=== PATIENT | male | born 1955 | race Caucasian/White ===

== ENCOUNTER 2017-08-30 20:15 | Inpatient (IN) | payer MEDICAID ==
[2017-08-30 22:16] LABS: ADD MAN DIFF? NO
[2017-08-30 22:17] LABS: WHITE BLOOD COUNT 15.7 10^3/ul (4.8-10.8)
[2017-08-30 22:17] LABS: BASOPHIL # 0.1 10^3/ul (0.0-0.1); BASOPHILS % 0.6 % (0.0-2.0); EOSINOPHILS % 0.2 % (0.0-7.0); HEMATOCRIT 45.7 % (42.0-52.0); LYMPHOCYTES # 1.5 10^3/ul (0.8-2.9); LYMPHOCYTES % 9.7 % (15.0-51.0); MEAN CORPUSCULAR HEMOGLOBIN 30.3 pg (29.0-33.0); MEAN CORPUSCULAR VOLUME 86.6 fl (82.0-101.0); MEAN PLATELET VOLUME 9.6 fl (7.4-10.4); MONOCYTE # 0.9 10^3/ul (0.3-0.9); MONOCYTES % 5.6 % (0.0-11.0); PLATELET COUNT 260 10^3/UL (140-415); POSITIVE DIFF @See below; RED BLOOD COUNT 5.28 10^6/ul (4.70-6.10); RED CELL DISTRIBUTION WIDTH 12.7 % (11.5-14.5)
[2017-08-30 22:20] LABS: URINE BLOOD (Dip) POC Negative (NEGATIVE); URINE GLUCOSE (Dip) POC Negative (NEGATIVE); URINE KETONES (Dip) POC 2+ (NEGATIVE); URINE LEUKOCYTE EST (Dip) POC Negative (NEGATIVE); URINE NITRITE (Dip) POC Negative (NEGATIVE); URINE TOTAL PROTEIN POC 1+ (NEGATIVE)
[2017-08-30 22:20] LABS: URINE PH (Dip) POC 8.5 (5.0-8.5)
[2017-08-30 22:30] LABS: INR 0.93; PROTIME 12.5 Sec (11.9-14.9)
[2017-08-30 22:31] LABS: PARTIAL THROMBOPLASTIN TIME 26.6 Sec (25.0-35.0)
[2017-08-30 22:32] LABS: ALANINE AMINOTRANSFERASE 59 IU/L (13-69); ALBUMIN 5.1 g/dl (3.3-4.9); ALBUMIN/GLOBULIN RATIO 1.45; ALKALINE PHOSPHATASE 88 IU/L (42-121); ANION GAP 23 (8-16); ASPARTATE AMINO TRANSFERASE 49 IU/L (15-46); BILIRUBIN,INDIRECT 0.4 mg/dl (0-1.1); BILIRUBIN,TOTAL 0.4 mg/dl (0.2-1.3); BLOOD UREA NITROGEN 12 mg/dl (7-20); CALCIUM 10.3 mg/dl (8.4-10.2); CARBON DIOXIDE 25 mmol/L (21-31); CHLORIDE 96 mmol/L (97-110); GLUCOSE 151 mg/dl (70-220); LIPASE 86 U/L (23-300); POTASSIUM 3.6 mmol/L (3.5-5.1); SODIUM 140 mmol/L (135-144); TOTAL PROTEIN 8.6 g/dl (6.1-8.1)
[2017-08-30] MEDS: ONDANSETRON 4 MG INJ IV (22:42)
[2017-08-30] MEDS: HYDROmorphONE 1 MG/ML SYG IV (22:42)
[2017-08-30 23:01] LABS: ADD UMIC YES; UR ASCORBIC ACID NEGATIVE (NEGATIVE); UR BACTERIA FEW /HPF (NONE SEEN); UR BILIRUBIN (Dip) NEGATIVE (NEGATIVE); UR BLOOD (Dip) NEGATIVE (NEGATIVE); UR CLARITY CLOUDY (CLEAR); UR COLOR YELLOW (YELLOW); UR GLUCOSE (Dip) NEGATIVE (NEGATIVE); UR KETONES (Dip) 1+ mg/dL (NEGATIVE); UR LEUKOCYTE ESTERASE (Dip) NEGATIVE Leu/ul (NEGATIVE); UR NITRITE (Dip) NEGATIVE (NEGATIVE); UR RBC 2 /HPF (0-5); UR SPECIFIC GRAVITY (Dip) 1.019 (1.003-1.030); UR SQUAMOUS EPITHELIAL CELL FEW /HPF (FEW); UR TOTAL PROTEIN (Dip) 1+ mg/dl (NEGATIVE); UR UROBILINOGEN (Dip) 2+ mg/dL (NEGATIVE); UR WBC 2 /HPF (0-5)
[2017-08-31] MEDS: PIPER-TAZO 3.375 GM IV (PMX) 100 ML IVPB (00:33)
[2017-08-31] MEDS: SOD CHLORIDE 0.9% 1,000 ML IV (00:34)
[2017-08-31] MEDS: HYDROmorphONE 1 MG/ML SYG IV (01:21)
[2017-08-31] MEDS ORDERED: morphine 2 MG INJ IV (03:00)
[2017-08-31] MEDS ORDERED: ONDANSETRON 4 MG INJ IV (03:00)
[2017-08-31] MEDS: DEXTROSE 5%-0.45% NACL 1,000 ML IV ×3 (03:02→23:00)
[2017-08-31] MEDS: morphine 2 MG INJ IV ×5 (04:35→21:50)
[2017-08-31 05:20] LABS: ADD MAN DIFF? NO
[2017-08-31 05:36] LABS: BASOPHILS % 0.5 % (0.0-2.0); EOSINOPHILS # 0.1 10^3/ul (0.0-0.5); EOSINOPHILS % 0.8 % (0.0-7.0); HEMATOCRIT 40.2 % (42.0-52.0); HEMOGLOBIN 13.8 g/dl (14.0-18.0); LYMPHOCYTES # 1.7 10^3/ul (0.8-2.9); LYMPHOCYTES % 21.3 % (15.0-51.0); MEAN CORPUSCULAR HEMOGLOBIN 30.1 pg (29.0-33.0); MEAN CORPUSCULAR HGB CONC 34.3 g/dl (32.0-37.0); MEAN CORPUSCULAR VOLUME 87.6 fl (82.0-101.0); MONOCYTE # 0.9 10^3/ul (0.3-0.9); MONOCYTES % 11.1 % (0.0-11.0); NEUTROPHIL # 5.3 10^3/ul (1.6-7.5); NEUTROPHILS % 65.7 % (39.0-77.0); PLATELET COUNT 225 10^3/UL (140-415); RED BLOOD COUNT 4.59 10^6/ul (4.70-6.10); RED CELL DISTRIBUTION WIDTH 12.6 % (11.5-14.5)
[2017-08-31 05:57] LABS: ALANINE AMINOTRANSFERASE 49 IU/L (13-69); ALBUMIN 3.9 g/dl (3.3-4.9); ALBUMIN/GLOBULIN RATIO 1.21; ALKALINE PHOSPHATASE 57 IU/L (42-121); ANION GAP 14 (8-16); ASPARTATE AMINO TRANSFERASE 32 IU/L (15-46); BILIRUBIN,INDIRECT 0.6 mg/dl (0-1.1); BILIRUBIN,TOTAL 0.6 mg/dl (0.2-1.3); BLOOD UREA NITROGEN 11 mg/dl (7-20); CALCIUM 9.3 mg/dl (8.4-10.2); CARBON DIOXIDE 25 mmol/L (21-31); CHLORIDE 104 mmol/L (97-110); CREATININE 0.75 mg/dl (0.61-1.24); GLUCOSE 130 mg/dl (70-220); MAGNESIUM 1.8 mg/dl (1.7-2.5); PHOSPHORUS 4.1 mg/dl (2.5-4.9); POTASSIUM 3.7 mmol/L (3.5-5.1); SODIUM 139 mmol/L (135-144); TOTAL PROTEIN 7.1 g/dl (6.1-8.1)
[2017-08-31] MEDS ORDERED: hydrALAzine 20 MG INJ IV (07:00)
[2017-08-31] MEDS: CEFEPIME 1GM/50 ML (PMX) 50 ML IVPB ×2 (08:39→20:17)
[2017-08-31] MEDS: FAMOTIDINE 20 MG INJ IV ×2 (08:39→20:16)
[2017-09-01] MEDS: morphine 2 MG INJ IV ×3 (01:44→10:11)
[2017-09-01] MEDS: DEXTROSE 5%-0.45% NACL 1,000 ML IV ×3 (03:18→16:52)
[2017-09-01 05:35] LABS: ADD MAN DIFF? NO
[2017-09-01 05:38] LABS: WHITE BLOOD COUNT 5.6 10^3/ul (4.8-10.8)
[2017-09-01 05:38] LABS: BASOPHIL # 0.1 10^3/ul (0.0-0.1); BASOPHILS % 1.1 % (0.0-2.0); EOSINOPHILS # 0.2 10^3/ul (0.0-0.5); EOSINOPHILS % 3.6 % (0.0-7.0); HEMATOCRIT 40.9 % (42.0-52.0); HEMOGLOBIN 13.8 g/dl (14.0-18.0); LYMPHOCYTES # 1.7 10^3/ul (0.8-2.9); LYMPHOCYTES % 30.9 % (15.0-51.0); MEAN CORPUSCULAR HEMOGLOBIN 29.7 pg (29.0-33.0); MEAN CORPUSCULAR HGB CONC 33.7 g/dl (32.0-37.0); MEAN CORPUSCULAR VOLUME 88.1 fl (82.0-101.0); MEAN PLATELET VOLUME 9.8 fl (7.4-10.4); MONOCYTE # 0.7 10^3/ul (0.3-0.9); NEUTROPHIL # 2.9 10^3/ul (1.6-7.5); NEUTROPHILS % 51.7 % (39.0-77.0); PLATELET COUNT 222 10^3/UL (140-415); RED BLOOD COUNT 4.64 10^6/ul (4.70-6.10)
[2017-09-01 06:11] LABS: ALANINE AMINOTRANSFERASE 53 IU/L (13-69); ALBUMIN 4.1 g/dl (3.3-4.9); ALBUMIN/GLOBULIN RATIO 1.51; ALKALINE PHOSPHATASE 54 IU/L (42-121); ANION GAP 16 (8-16); ASPARTATE AMINO TRANSFERASE 40 IU/L (15-46); BILIRUBIN,INDIRECT 0.7 mg/dl (0-1.1); BILIRUBIN,TOTAL 0.7 mg/dl (0.2-1.3); BLOOD UREA NITROGEN 8 mg/dl (7-20); CARBON DIOXIDE 26 mmol/L (21-31); CHLORIDE 107 mmol/L (97-110); GLUCOSE 105 mg/dl (70-220); POTASSIUM 3.8 mmol/L (3.5-5.1); SODIUM 145 mmol/L (135-144); TOTAL PROTEIN 6.8 g/dl (6.1-8.1)
[2017-09-01 06:20] LABS: MAGNESIUM 1.9 mg/dl (1.7-2.5)
[2017-09-01 06:20] LABS: PHOSPHORUS 3.4 mg/dl (2.5-4.9)
[2017-09-01 06:34] LABS: INR 0.99; PROTIME 13.2 Sec (11.9-14.9)
[2017-09-01 06:35] LABS: PARTIAL THROMBOPLASTIN TIME 31.4 Sec (25.0-35.0)
[2017-09-01] MEDS: FAMOTIDINE 20 MG INJ IV (08:11)
[2017-09-01] MEDS: CEFEPIME 1GM/50 ML (PMX) 50 ML IVPB (08:12)
[2017-09-01] MEDS: PANTOPRAZOLE (EC) 40 MG TAB PO (09:00)
[2017-09-01] MEDS: CHOLECALCIFEROL 1,000 UNIT TAB PO (10:08)
[2017-09-01] MEDS: LOSARTAN 50 MG TAB PO (10:11)
[2017-09-01 11:28] LABS: HEMOGLOBIN A1C 5.5 % (0-5.9)
[2017-09-01] MEDS: HYDROCODONE/APAP (5/325) TAB PO (21:34)
[2017-09-02] MEDS: DEXTROSE 5%-0.45% NACL 1,000 ML IV (05:00)
[2017-09-02] MEDS: PANTOPRAZOLE (EC) 40 MG TAB PO (05:06)
[2017-09-02] MEDS: CHOLECALCIFEROL 1,000 UNIT TAB PO (08:25)
[2017-09-02] MEDS: LOSARTAN 50 MG TAB PO (08:26)
[2017-09-02] MEDS: HYDROCODONE/APAP (5/325) TAB PO (08:26)
== END 2017-09-02 09:30 | disposition home or self-care (01) | DRG 389 ==
LOC: MS1 08-31 00:35 → E/R 20:15 → MS1 08-31 02:10
DX: K56.609 Unspecified intestinal obstruction, unspecified as to partial versus complete obstruction (principal); R65.10 Systemic inflammatory response syndrome (SIRS) of non-infectious origin without acute organ dysfunction; K76.0 Fatty (change of) liver, not elsewhere classified; I10 Essential (primary) hypertension; K80.20 Calculus of gallbladder without cholecystitis without obstruction; K57.30 Diverticulosis of large intestine without perforation or abscess without bleeding; Z87.11 Personal history of peptic ulcer disease; Z87.891 Personal history of nicotine dependence
CPT/HCPCS: 36415; 71045; 74176; 80053; 81001; 81003; 83036; 83605; 83690; 83735; 84100; 85025; 85610; 85730; 87040; 87086; 96374; 96375; 96376; 99285-25

== ENCOUNTER 2018-03-10 01:11 | Emergency (ER) | payer MEDICAID, OTHER ==
[2018-03-10] MEDS ORDERED: ACETAMINOPHEN 500 MG TAB (03:15)
[2018-03-10] MEDS: ACETAMINOPHEN 500 MG TAB PO (03:16)
[2018-03-10] MEDS ORDERED: DIPHENHYDRAMINE 50 MG INJ (03:25)
[2018-03-10] MEDS ORDERED: HALOPERIDOL 5 MG INJ (03:25)
[2018-03-10] MEDS ORDERED: LORAZEPAM 2 MG INJ (03:25)
== END 2018-03-10 03:06 | disposition home or self-care (01) ==
LOC: E/R 01:11
DX: S00.83XA Contusion of other part of head, initial encounter (principal); F10.920 Alcohol use, unspecified with intoxication, uncomplicated; I10 Essential (primary) hypertension; Y08.02XA Assault by strike by baseball bat, initial encounter; Y92.9 Unspecified place or not applicable
CPT/HCPCS: 70450; 70486; 99285-25